=== PATIENT | male | born 1970 | race Caucasian/White ===

== ENCOUNTER 2016-07-14 07:30 | Outpatient (RCR) | payer OTHER ==
--- NOTE | 2016-06-22 15:21 | PT/OT/ST INITIAL EVALUATION ---
Department of Health and Human Services Form Approved Health Care Financing Administration OMB No. [id number] PLAN OF CARE/ASSESSMENT FOR OUTPATIENT REHABILITATION (Complete for Initial Claims Only) 1. PATIENT'S NAME Bon Laughlin 2. ACC # [id number] [facility]. [id number] 4. PROVIDER NO. [id number] 5. TYPE: PT 6. PRIOR HOSPITALIZATION None 7. PRIMARY DX Chronic osteoarthritic right knee pain 8. SECONDARY DX Right knee weakness 9. ONSET DATE Several years ago 10. REFERRAL DATE 06/15/2016 11. SOC. DATE 06/22/2016 12. TIME OF EVAL 8:00 a.m. 12. REFERRING PHYSICIAN Ashley Duke MD 13. CHARGES/UNITS Evaluation, Manual therapy, Therex 14. G CODES Mobility 15. PRIOR LEVEL OF FUNCTION; PERTINENT HISTORY (Prior therapy results, reason for referral.) S: Reason for referral: The patient was referred to physical therapy by Dr. Duke with [facility] in [place] with the diagnosis of right knee osteoarthritis. Primary Complaint: The patient reports that he has had pain off and on at his right knee for several years. He initially hurt the knee 20 years ago and has had 2 surgeries at the knee. The patient feels that he has lost some mobility and stability at the knee. He does have intermittent swelling and occasionally he will have a loose body or object that moves around in the knee. The patient reports it is a constant dull ache. He did undergo previous physical therapy 2 years ago with some relief of pain. The patient was given an off-loading brace last week that he has been wearing. Occupational and social health history: The patient is currently a student, taking online college courses. Pain level: Current pain rating is 3/10. Aggravating factors: The patient reports having pain ascending and descending stairs. Current medications: He takes naproxen as needed for pain. Patient's Goal: The patient's goal for therapy is pain relief. 16. INITIAL ASSESSMENT/SAFETY PRECAUTIONS/MEDICAL COMPLICATIONS (Level of function at start of care. Be specific, use objective measures, list problems.) O: APPEARANCE, OBSERVATION AND GAIT: The patient is a 46-year-old male. He ambulates into physical therapy with mild antalgia noted at right lower extremity with gait. Appearance of right knee demonstrates atrophy at right distal quad region. Right patella is laterally tilted. PALPATION: Tenderness is noted at right patella region. Pain with patella mobility. Crepitus is noted. RANGE OF MOTION/FLEXIBILITY: The patient demonstrates moderate tightness at right IT band. GIRTH MEASUREMENT: Right knee 40.5 cm, left 39.8 cm at medial joint line. Range of motion right knee -2 degrees from terminal knee extension to 117 degrees. Left knee 5 degrees hyperextension to 138 degrees. Flexibility right hamstring 80 degrees, left 90 degrees. STRENGTH: Right straight leg raise 4/5 manual muscle test, knee extension 4-/5 manual muscle test, knee flexion 4/5 manual muscle test, hip abduction 4/5 manual muscle test, hip extension 4/5 manual muscle test. Left hip and knee strength were 5/5 manual muscle test with all motions and directions. TODAY'S TREATMENT: Included initial evaluation followed by manual ASTYM to the patient's right knee and anterior thigh region. The patient then performed light open chain active range of motion exercises and the patient was instructed on a home exercise program. 17. INITIAL POC: (Specify procedures, modalities, short and correction goals) A: The patient demonstrates right knee pain and weakness. PROGNOSIS: The patient may benefit from light strengthening, stability and gait activities. Modalities may also help pain. SHORT TERM GOALS: 1. The patient to be compliant with home exercise program in 2 weeks. 2. The patient to attain 10 degrees additional flexion at right knee in 3 weeks. 3. The patient to demonstrate good stability and control at right knee in 4 weeks. 4. The patient to demonstrate half a muscle grade improvement in strength at right hip and knee in 6 weeks. 5. The patient to report that he is able to perform normal daily activities with 50% less pain at right knee in 6 weeks. P: The patient will be seen 2 times a week over the next 6 weeks. Treatment to include modalities of manual therapy as necessary to decrease pain and inflammation. We will progress the patient with range of motion, flexibility, stabilization, and light strengthening activities as tolerated. 18. FREQUENCY 2 times per week 19. DURATION 6 weeks 20. FUNCTIONAL LEVEL (End of claim period) 21. PHYSICIAN SIGNATURE ? ON FILE OR ENTER HERE: 22. DATE: I certify the need for these services furnished under this plan of care and if for partial hospitalization. 23. CERTIFICATION FROM THROUGH FORM [id number]
== END 2016-07-18 10:15 | disposition home or self-care (01) ==
LOC: PT 07:30
PROVIDERS: ATTEND Internal Medicine
DX: M17.11 Unilateral primary osteoarthritis, right knee (principal)
CPT/HCPCS: 97110; 97140; 97161; G8978; G8979